=== PATIENT | female | born 1950 | race Caucasian/White ===

== ENCOUNTER 2025-05-20 10:44 | Inpatient (IN) | payer BC, MEDICAID ==
[~2025-05-20] VITALS: Ht 149.9 cm; Wt 53.6 kg
[2025-05-20] MEDS: HYDROmorphone inj. 0.5 MG/0.5 ML DISP.SYRIN IV ONE (11:06)
--- NOTE | 2025-05-20 11:06 | Physician Documentation ---
History of Present Illness Chief Complaint: Abdominal Pain Stated Complaint: SEPSIS Time Seen by MD: 10:46 HPI 74-year-old female, presents as a transfer from an outside hospital, with abdominal pain, colitis, hypotensive shock. The patient tells me that she has been having abdominal pain. She does report ongoing lower abdominal pain and feels like she needs to have a bowel movement. Pain is severe. The patient was seen at an outside hospital. She was hypotensive, given aggressive IV fluid hydration and temporarily placed on norepinephrine. CT scan reportedly shows colitis. Medication Reconciliation Allergies: Coded Allergies: ketamine (Verified Allergy, Severe, 05/20/25) hallucination, confusion Review of Systems Constitutional: Denies: fever Gastrointestinal: Reports: abdominal pain, nausea Physical Exam Vital Signs: Heart Rate: 86, Respiratory Rate: 20, BP: 126/83, Pulse Oximetry: 91, Weight: 53.640 Oxygen Flow Rate: 2.0 Physical Exam General: This is a pleasant and nontoxic appearing older female, brought in by EMS HEENT: Atraumatic, oropharynx appears dry Heart: Regular rate and rhythm, normal-appearing peripheral perfusion Lungs: normal work of breathing, normal oxygen saturation on room air Abdomen: Soft, no significant distention. The patient is quite tender on palpation especially in the lower abdomen, with voluntary guarding Neuro: Alert and oriented Psychiatric: Calm and cooperative with exam Progress Results/Orders Results/Orders Orders - SAMMI MCGUIRE MD Cbc/Diff (05/20/25 10:57) LA (05/20/25 10:57) CMP (05/20/25 10:57) Completed Orders - SAMMI MCGUIRE MD Hydromorphone 0.5 Mg/0.5 Ml/Pf (Dilaudid (05/20/25 11:00) Vital Signs 05/20/25 10:48 Pulse 86 Resp 20 B/P (MAP) 126/83 Pulse Ox 91 O2 Flow Rate 2.0 Consults/PCP Consults/PCP : Additional Comment Consult: I spoke to the internal medicine service, for admission in the hospital Medical Decision Making Additional information obtaine: old records Findings Reviewed records from outside hospital. CT scan shows colitis of the sigmoid colon with moderate ascites which is new Differential Dx:Considerations: Appendicitis, Bowel obstruction, Gastroe nteritis, Ischemic bowel Additional Comments The patient presents as a transfer from an outside hospital, with colitis and hypotension which has improved. She is no longer on pressors. She does still have abdominal pain and was given further pain medications. Repeat labs show a slightly elevated lactate and mild leukocytosis. She already had abdominal imaging and antibiotics. She will be admitted to the medicine service for further workup and treatment. Departure Impression: Primary Impression: Colitis Additional Impression: Septic shock Referrals: NO PRIMARY CARE PROVIDER (PCP) Signature Scribe Signature: na Attestation: SAMMI Quarles MD May 20, 2025 11:06
[2025-05-20 11:41] LABS: MEAN PLATELET VOLUME 8.9 FL (7.4-10.4); RED CELL DISTRIBUTION WIDTH 16.2 % (11.5-14.5)
[2025-05-20 11:59] LABS: CREATININE 1.39 MG/DL (0.40-0.90); TOTAL CARBON DIOXIDE 24.0 MMOL/L (24-32); eCRCL 24 ML/MIN; eGFR 37 ML/MIN
[2025-05-20] MEDS ORDERED: magnesium Cl slow-release 64mg tablet PO PRN (12:05)
[2025-05-20] MEDS ORDERED: HYDROcodone/acetaminophen 5mg/325mg tablet PO PRN (12:05)
[2025-05-20] MEDS ORDERED: magnesium hydroxide 30ml (MOM) UD suspension PO PRN (12:05)
[2025-05-20] MEDS ORDERED: potassium Cl 40MEQ/1/2NS 520ml 520 ML IV PRN (12:05)
[2025-05-20] MEDS ORDERED: potassium Cl 20 mEq SR tablet PO PRN (12:05)
[2025-05-20] MEDS ORDERED: magnesium sulf-water 4G/100mL 100 ML IV PRN (12:05)
[2025-05-20] MEDS ORDERED: magnesium sulf-water 2g/50mL 50 ML IV PRN (12:05)
[2025-05-20] MEDS ORDERED: ondansetron/PF 4mg/2ml inj IV PRN (12:05)
[2025-05-20] MEDS: normal saline 1000ml 1,000 ML IV SCH ×2 (12:37→15:46)
[2025-05-20] MEDS: metroNIDAZOLE-Flagyl 500mg/NS 100 ML IV SCH (12:41)
[2025-05-20] MEDS: ciprofloxacin lact 400MG/200ML 200 ML IV SCH (14:04)
[2025-05-20] MEDS: normal saline 1000ml 1,000 ML IV ONE (17:54)
[2025-05-20] MEDS ORDERED: MIRT-87 (19:44)
[2025-05-20] MEDS ORDERED: TRAZ-256 (19:44)
[2025-05-20] MEDS ORDERED: UBRO50TA (19:44)
[2025-05-20] MEDS ORDERED: ATOR40TA72 PO (19:44)
[2025-05-20] MEDS ORDERED: METO-395 PO (19:44)
[2025-05-20] MEDS ORDERED: HYDR-3972 (19:44)
[2025-05-20] MEDS ORDERED: ASPI-1265 PO (19:44)
[2025-05-20] MEDS ORDERED: CLON-368 (19:44)
[2025-05-20] MEDS ORDERED: AMLO5TAB16 PO (19:44)
[2025-05-20] MEDS ORDERED: DULO30CA52 PO (19:44)
[2025-05-20] MEDS ORDERED: IVAB5TAB3 (19:44)
[2025-05-20] MEDS ORDERED: AMIT50TA15 PO (19:44)
[2025-05-20] MEDS ORDERED: PANT40TA54 PO (19:44)
[2025-05-20] MEDS ORDERED: LEVO100T9 PO (19:44)
--- NOTE | 2025-05-20 19:55 | HISTORY AND PHYSICAL ---
History & Physical Providers to ~ History of Present Illness Reason for Admit\Complaint: Lower belly pain, hypotension History of Present Illness Patient is 74-year-old female transferred from [facility] for left lower abdominal pain, acute colitis hypovolemic shock. Patient went to [facility] because she noticed pain over abdomen which got more worse. pain over left lower quadrant nonradiating. Pain over lower abdomen associated with vomiting and as per patient she had 10 episodes of vomiting she has was not able to check her fever. According to her her belly feels like bloating in around 2:30 a.m. today it got more worse. She passed stools today which was loose no blood noticed in the stools. Patient denies any other symptoms. She is not very good historian mildly anxious As per [facility] patient was on IV fluids and Levophed . Levophed was discontinued 2 hours before transferring the patient to [facility] hospital. She required Dilaudid in received Zosyn in [facility] periods CT scan abdomen showed signs of sigmoid colitis. There is moderate ascites which is new. Persistent intrahepatic and extrahepatic biliary distension unchanged. Dilated pancreatic duct and changed WBC 11.85 CMP showing GFR 38 serum creatinine 1.6. Procalcitonin 0.16 positive urine nitrate in UA. Few bacteria. X-ray chest showed mild pulmonary edema superimposed infection or inflammation is possible. Patient follows with Marcella Lo in [facility]. She has [facility] worker to help her for her appointments and groceries. Follows with client success specialist Erendira heller. Denies use of any alcohol or drugs. Last smoking two weeks back but she has history of smoking in past. Allergies: Coded Allergies: ketamine (Verified Allergy, Severe, 05/20/25) hallucination, confusion Home Medications Home Medications Active Reported Ivabradine HCl 5 Mg Tablet Ubrelvy (Ubrogepant) 50 Mg Tablet Mirtazapine 15 Mg Tablet Metoprolol Succinate 25 Mg Tab.sr.24h 1 Tab PO DAILY Atorvastatin Calcium 40 Mg Tablet 1 Tab PO HS Trazodone HCl 100 Mg Tablet Hydrocodon-Acetaminophn 10-325 tablet (Acetaminophen/Hydrocodone Bitart) 10mg- 325mg Tablet Elavil* (Amitriptyline HCl) 50 Mg Tablet 1 Tab PO HS Clonazepam 0.5 Mg Tablet Levothyroxine Sodium 100 Mcg Tablet 1 Tab PO DAILY Aspirin 81 Mg Tab.chew 1 Tab PO DAILY Pantoprazole Sodium 40 Mg Tablet. 1 Tab PO DAILY Amlodipine Besylate 5 Mg Tablet 1 Tab PO DAILY Duloxetine HCl 30 Mg Capsule. 1 Cap PO DAILY Past Medical History Past Medical History Falling since September 21, 2024, History of PR, Coronary artery disease, hypertension, hypothyroidism, History of bowel resection, small-bowel obstruction in past Past Social History Social History Comment Patient lives by herself. Patient follows with Marcella Lo in [facility]. She has [facility] worker to help her for her appointments and groceries. Follows with client success specialist Erendira heller. Denies use of any alcohol or drugs. Last smoking two weeks back but she has history of smoking in past. 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 Exam Vitals: Vital Signs Date Time Temp Pulse Resp B/P (MAP) Pulse Ox O2 Delivery O2 Flow Rate FiO2 05/20/25 19:46 84 16 111/74 (86) 94 05/20/25 15:43 98.5 2.0 General: General-patient not in any acute distress, awake ,chronically ill-appearing HEENT-atraumatic normocephalic, neck supple without elevated JVD, no thyromegaly or carotid bruit. No lymphadenopathy bilaterally. Eyes-no icterus or pallor seen in eyes Chest-decreased breath sounds to auscultation bilaterally, breathing nonlabored no tachypnea, no wheezing, no crepitation, no crackles. Heart-S1-S2 normal, regular heart rate no murmur Abdomen bowel sounds positive on auscultation, soft nondistended nontender no guarding, no rigidity genital - brown color mildly loose stools noticed Skin no active skin rash Neurology-grossly intact, nonfocal, awake Extremity- no pedal edema able to move all 4 extremities Psychiatry - patient is not confused or agitated cooperated during physical examination Diagnostic Data Last Recorded Lab Results: 05/20/25 1123 05/20/25 1123 Advance Care Planning Advanced Care plannin - 30 Minutes Additional Plan Patient is 74-year-old female transferred from [facility] for left lower abdominal pain, acute colitis hypovolemic shock. Patient went to [facility] because she noticed pain over lower abdomen which got more worse. As per [facility] patient was on IV fluids and Levophed . Levophed was discontinued 2 hours before transferring the patient to [facility] hospital. She required Dilaudid in received Zosyn in [facility] periods CT scan abdomen showed signs of sigmoid colitis. There is moderate ascites which is new. Persistent intrahepatic and extrahepatic biliary distension unchanged. Dilated pancreatic duct and changed WBC 11.85 CMP showing GFR 38 serum creatinine 1.6. Procalcitonin 0.16 positive urine nitrate in UA. Few bacteria. X-ray chest showed mild pulmonary edema superimposed infection or inflammation is possible. # patient is started on Cipro and Flagyl for acute colitis, IV fluids we will repeat lactic acid. # CAD-ordered echocardiogram we will follow the results. # acute renal failure/CKD- on IV fluid we will monitor renal function. # hypotension-improved on fluids. # We will continue to monitor patient's labs and vitals closely . Needs physical therapy evaluation before discharge . Code status discussed with the patient patient wishes full code Time spent in discussing code status 16 minutes. We will do home medication reconciliation once updated in electronic by nursing staff or pharmacist. Further management depending on response to treatment and we will continue to follow patient in a.m. from hospitalist team. Date of Service: May 20, 2025 Billing Provider: JUAN MIMS MD Common Visit Codes: [id number] INP/OBS CARE (HIGH) Secondary Visit Codes: [id number] CARE PLAN 30 MINUTES JUAN MIMS MD May 20, 2025 19:55
[2025-05-20 21:00] VITALS: BP 157/86; PULSE 94; RESP 18; TEMP 98.6; O2SAT 90
[2025-05-20] MEDS: heparin, porcine 5000 units/ml vial SQ SCH (21:36)
[2025-05-20] MEDS: HYDROcodone/acetaminophen 10/325mg tab PO PRN (21:37)
[2025-05-20] MEDS: ciprofloxacin lact 400MG/200ML 200 ML IV ONE (23:38)
[2025-05-21 05:00] VITALS: BP 128/76; PULSE 84; RESP 17; TEMP 97.4; O2SAT 92
[2025-05-21 06:54] LABS: MEAN PLATELET VOLUME 9.5 FL (7.4-10.4); RED CELL DISTRIBUTION WIDTH 16.3 % (11.5-14.5)
[2025-05-21 07:48] LABS: CREATININE 0.95 MG/DL (0.40-0.90); TOTAL CARBON DIOXIDE 20.4 MMOL/L (24-32); eCRCL 35 ML/MIN; eGFR 57 ML/MIN
[2025-05-21 10:00] VITALS: BP 105/64; PULSE 83; RESP 16; TEMP 98.9; O2SAT 93
[2025-05-21] MEDS: ENSURE HIGH PROTEIN PO SCH (13:00)
--- NOTE | 2025-05-21 17:49 | PROGRESS NOTE- Residence ---
Progress Note - Resident Providers to CC Resident Creating Document: RYAN VARGASANUPAM Harrington, RES ~ Antibiotic Timeout Antibiotic Ordered?: Yes Subjective The patient has been evaluated at the bedside. The patient reports improvement of diarrhea. Last bowel movement at 6:00 a.m. Objective Vital Signs Date Time Temp Pulse Resp B/P (MAP) Pulse Ox O2 Delivery O2 Flow Rate FiO2 05/21/25 10:00 98.9 83 16 105/64 (78) 93 Room Air 05/20/25 15:43 2.0 Physical exam: General: Awake, alert, oriented. No acute distress. Well-developed, hydrated and well-built nourished. No anemia, Jaundice or clubbing. HEENT: Conjunctive are pink, sclerae clear, no icterus, pupil is equal in both sides, reactive to light, no ear discharge, no pharyngeal erythema or an edema. Neck: Supple, no adenopathy, thyromegaly. Trachea is midline. No JVD. Chest: Respiratory: Vesicular breath sounds. No ronchi, crepitus or wheezing. Resonance is normal upon percussion of all lung lee. Cardiovascular: S1-S2 regular sinus rhythm and, regular rate, no gallops, no rubs, no murmurs Abdomen: No visible distention, Bowel sounds present on auscultation, on palpation: soft, tender to palpation in the lower abdomen, no guarding, no rigidity. Extremities: No obvious deformities, no pitting edema bilaterally, capillary refill intact, peripheral pulsations are intact on both sides Neurologic: Mental status: alert and conscious, oriented to place, person and time, preserved memory, normal speech. Cranial nerves I-XII: Normal. Motor system: Preserved power, coordination, no evidenced involuntary movements, strength 5/5 in four extremities. Skin: Warm and dry. Presence of scar in the midline of the abdomen Result Diagram: 05/21/2554005/21/25540 Assessment Assessment 74-year-old female patient came to the hospital transferred from [facility] due to abdominal pain and diarrhea. Plan Plan Acute diarrhea: Septic shock: Infectious Colitis: A: The patient presented with acute abdominal pain and diarrhea. CT scan of the abdomen showed signs of sigmoid colitis. There is moderate ascites which is new. Persistent intrahepatic and extrahepatic biliary distension unchanged. Dilated pancreatic duct and changed. The patient was transferred from [facility], initially was treated with Levophed-discontinued at the other facility V4 transferred. WBC trended down compared with admission. Last colonoscopy that the patient had was in 2022 at [facility] were polyps were evidenced, benign. The patient was recommended to follow-up colonoscopy in seven years. Procalcitonin 5.06. Plan: Continue ciprofloxacin IV b.i.d. Continue metronidazole IV b.i.d. Culturelle 56052 mmu b.i.d. Acute kidney injury likely secondary to vasomotor nephropathy: Creatinine during admission 1.39, current creatinine level 0.95. Plan: Continue NS at 100 mL/hour. Hypertension: The patient initially was with hypotension, currently resolved. Amlodipine 5 mg daily. Metoprolol succinate 25 mg daily. Hypothyroidism: Levothyroxine 100 mcg daily. H/O Dyslipidemia: Atorvastatin 40 mg daily. Depression: Mirtazapine 50 mg daily. Duloxetine 30 mg daily. Amitriptyline 50 mg daily. H/O CAD: Pending echocardiogram. Aspirin 81 mg daily. Code status: Full code DVT prophylaxis: Heparin Analgesia/sedation: [place] Line/tube: PIV GI prophylaxis: Protonix Nutrition: Regular diet PT: Yes Prognosis: Guarded Disposition: Continue medical management. Anupam Sun Internal Medicine Resident [facility] Patient is seen and examined with resident at bedside agree with the above questionable DC home in a.m. Date of Service: May 21, 2025 Billing Provider: BELLO FELIPE MD Common Visit Codes: [id number] INP/OBS CARE(HIGH) ANUPAM FAIRBANKS, RES May 21, 2025 17:49 BELLO FELIPE MD May 22, 2025 09:54
[2025-05-21 18:00] VITALS: BP 127/84; PULSE 103; RESP 19; TEMP 98.9; O2SAT 90
[2025-05-21] MEDS: lactobacillus rhamnosus 10,000 MMU CELLS/CAPSULE PO SCH (19:46)
[2025-05-21 22:00] VITALS: BP 158/95; PULSE 100; RESP 16; TEMP 98.5; O2SAT 97
[2025-05-22 06:00] VITALS: BP 119/78; PULSE 87; RESP 18; TEMP 98.8; O2SAT 95
[2025-05-22 06:44] LABS: MEAN PLATELET VOLUME 9.7 FL (7.4-10.4); RED CELL DISTRIBUTION WIDTH 16.1 % (11.5-14.5)
[2025-05-22 07:11] LABS: CREATININE 0.73 MG/DL (0.40-0.90); TOTAL CARBON DIOXIDE 22.1 MMOL/L (24-32); eCRCL 45 ML/MIN; eGFR 78 ML/MIN
[2025-05-22 08:18] LABS: % IRON SATURATION 3 % (11-46)
[2025-05-22] MEDS: duloxetine 30mg CAPSULE.DR PO SCH (08:54)
[2025-05-22] MEDS: levoTHYROXINE 100mcg tablet PO SCH (08:54)
[2025-05-22] MEDS: pantoprazole 40mg Tablet.DR PO SCH (08:55)
[2025-05-22] MEDS: metoprolol succinate 25mg (24-HOUR) SR. Tablet PO SCH (08:55)
[2025-05-22 10:00] VITALS: BP 131/85; PULSE 90; RESP 18; TEMP 98.6; O2SAT 91
[2025-05-22] MEDS: iron sucrose complex injection 300 MG in normal saline 250ml IV soln 250 ML IV SCH (10:00)
--- NOTE | 2025-05-22 13:33 | CARDIOLOGY REPORT ---
APPROVED REPORT EXAM: Comprehensive 2D, Doppler, and color-flow Echocardiogram. Patient Location: 4023B Blood Pressure: 128/76 mmHg Heart Rate: 95 bpm Indications Coronary Artery Disease HX of Myocardial Infarction (10/22/24 - per patient) HAND TRUCKER: Awilda Schultz MD NO Previous ECHO 2D Dimensions LA Diam 2.3 cm IVSd 1.1 (0.7-1.1cm) LVDd 3.1 cm PWd 1.1 (0.7-1.1cm) IVSs 1.4 (0.8-1.2cm) LVDs 1.8 (2.5-4.0cm) PWs 1.0 (0.8-1.2cm) LVOT Diameter 2.00 (1.8-2.4cm) LVEF(%) 74.6 (>50%) Ao Asc Diam. 2.97 cm IVC 10.37 mm FS (%) 42.1 % SV 27.4 ml CO 2.5 L/min M-Mode Dimensions Left Atrium(MM) 2.64 (2.5-4.0cm) Aortic Root 2.77 (2.2-3.7cm) Aortic Cusp Exc 1.33 (1.5-2.0cm) MV EPSS 0.3 (<0.5cm) Aortic Valve AoV Peak Mark. 168.3 cm/s AoV VTI 27.2 cm AO Peak GR. 11.3 mmHg AO Mean GR. 7 mmHg LVOT VTI 18.91 cm LVOT Peak Mark. 117.1 cm/s TANIA(VTI)/BSA 2.19 cm2/m2 TANIA (VTI) 2.19 cm2 AV DI 0.70 % Mitral Valve MV E Velocity 88.0 cm/s MV Peak Gr. 6 mmHg MV DECEL TIME 216 ms MV A Velocity 100.6 cm/s MV PHT 56 ms E/A Ratio 0.9 MVA (PHT) 3.93 cm2 MV VMax 119.8 cm/s TDI Lateral E' P. V 10.18 cm/s Medial E' P. V 10.32 cm/s E/Lateral E' 8.6 E/Medial E' 8.5 Tricuspid Valve TR P. Velocity 146 cm/s RAP ESTIMATE 10 mmHg TR Peak Gr. 9 mmHg RVSP 19 mmHg LEFT VENTRICLE Normal LV size and wall thickness. Overall systolic function is hyperdynamic. Overall LVEF is 70-75%. RIGHT VENTRICLE RV is normal size and function. ATRIA The left atrium size is normal. AORTIC VALVE Trileaflet AV appears mildly sclerotic without stenosis. No insufficiency. MITRAL VALVE Mitral valve leaflets are mildly thickened with mild annular calcification. No stenosis. Trace regurgitation. TRICUSPID VALVE Tricuspid valve is grossly normal in structure with trace regurgitation. PULMONIC VALVE Pulmonic valve is grossly normal in structure. GREAT VESSELS The aortic root is normal in size. The ascending aorta is normal in size. The IVC is normal in size and collapses >50% with inspiration. PERICARDIUM Normal pericardium. No effusion. Other Information Study Quality: Technically Difficult due to breat implants. Conclusion Overall LVEF is 70-75%. Normal LV size and wall thickness. Overall systolic function is hyperdynamic. RV is normal size and function. Mitral valve leaflets are mildly thickened with mild annular calcification. No stenosis. Trace regurgitation. Tricuspid valve is grossly normal in structure with trace regurgitation. Normal pericardium. No effusion. Pulmonic valve is grossly normal in structure.
[2025-05-22 15:26] LABS: OCCULT BLOOD STOOL POSITIVE (Neg)
[2025-05-22] MEDS: potassium Cl 20 mEq SR tablet PO PRN (16:58)
--- NOTE | 2025-05-22 17:38 | PROGRESS NOTE- Residence ---
Progress Note - Resident Providers to CC Resident Creating Document: REGGIE BELL RES ~ Antibiotic Timeout Antibiotic Ordered?: Yes Subjective The patient has been evaluated at the bedside. The patient reports she is having abdominal pain along with diarrhea. Objective Vital Signs Date Time Temp Pulse Resp B/P (MAP) Pulse Ox O2 Delivery O2 Flow Rate FiO2 05/22/25 13:41 20 05/22/25 10:00 98.6 90 131/85 (100) 91 Room Air 05/20/25 15:43 2.0 Result Diagram: 05/22/2541 05/22/25540 General: Awake, alert, oriented. Well-developed, hydrated and well-built nourished. No anemia, Jaundice or clubbing. HEENT: Conjunctive are pink, sclerae clear, no icterus, pupil is equal in both sides, reactive to light, no ear discharge, no pharyngeal erythema or an edema. Neck: Supple, no adenopathy, thyromegaly. Trachea is midline. No JVD. Chest: Respiratory: Vesicular breath sounds. No ronchi, crepitus or wheezing. Resonance is normal upon percussion of all lung lee. Cardiovascular: S1-S2 regular sinus rhythm and, regular rate, no gallops, no rubs, no murmurs Abdomen: No visible distention, Bowel sounds present on auscultation, on palpation: soft, tender to palpation in the lower abdomen, no guarding, no rigidity. Extremities: No obvious deformities, no pitting edema bilaterally, capillary refill intact, peripheral pulsations are intact on both sides Neurologic: Mental status: alert and conscious, oriented to place, person and time, preserved memory, normal speech. Cranial nerves I-XII: Normal. Motor system: Preserved power, coordination, no evidenced involuntary movements, strength 5/5 in four extremities. Skin: Warm and dry. Presence of scar in the midline of the abdomen Assessment Assessment 74-year-old female patient came to the hospital transferred from [facility] due to abdominal pain and diarrhea. Plan Plan Acute diarrhea: Septic shock: Infectious Colitis: A: The patient presented with acute abdominal pain and diarrhea. CT scan of the abdomen showed signs of sigmoid colitis. There is moderate ascites which is new. Persistent intrahepatic and extrahepatic biliary distension unchanged. Dilated pancreatic duct and changed. The patient was transferred from [facility], initially was treated with Levophed-discontinued at the other facility V4 transferred. WBC trended down compared with admission. Last colonoscopy that the patient had was in 2022 at [facility] were polyps were evidenced, benign. The patient was recommended to follow-up colonoscopy in seven years. Procalcitonin 5.06. Plan: Continue ciprofloxacin IV b.i.d. Continue metronidazole IV b.i.d. Culturelle 90784 mmu b.i.d. 05/22/25- Continue giving antibiotics We will continue to monitor her. Acute kidney injury likely secondary to vasomotor nephropathy: Creatinine during admission 1.39, current creatinine level 0.95. Plan: Continue NS at 100 mL/hour. 05/22/25- Creatinine back to normal. Continue to monitor her. Hypertension: The patient initially was with hypotension, currently resolved. Amlodipine 5 mg daily. Metoprolol succinate 25 mg daily. 05/22/25- Patient recording low blood pressure 66/46. Given 1 L bolus fluids. Held amlodipine and metoprolol in view of soft blood pressures. Hypothyroidism: Levothyroxine 100 mcg daily. H/O Dyslipidemia: Atorvastatin 40 mg daily. Depression: Mirtazapine 50 mg daily. Duloxetine 30 mg daily. Amitriptyline 50 mg daily. H/O CAD: Pending echocardiogram. Aspirin 81 mg daily. Code status: Full code DVT prophylaxis: Heparin Analgesia/sedation: [place] Line/tube: PIV GI prophylaxis: Protonix Nutrition: Regular diet PT: Yes Prognosis: Guarded Disposition: Continue medical management. Reggie Bell PGY-1 Date of Service: May 22, 2025 Billing Provider: BELLO FELIPE MD Common Visit Codes: [id number] INP/OBS CARE(HIGH) REGGIE BELL, RES May 22, 2025 17:38 BELLO FELIPE MD May 25, 2025 15:02
[2025-05-22 18:00] VITALS: BP 74/50; PULSE 93; RESP 20; TEMP 98.1; O2SAT 92
[2025-05-22] MEDS: normal saline 1000ML IV soln IVB ONE (18:09)
[2025-05-22 18:56] LABS: ABG BASE EXCESS -8.0 mmol/L (-2.0-3.0); ABG HCO3 16.8 mmol/L (21.0-28.0); ABG OXYGEN SATURATION 86.6 % (94.0-98.0); ABG PCO2 (T) 30.7 mmHg (32.0-45.0); ABG PH (T) 7.351 (7.350-7.450); ABG PO2 (T) 51.5 mmHg (83.0-108.0); ALLEN'S TEST Modified; FCOHb 0.9 % (0.5-1.5); FHHb 13.2 % (0.0-5.0); FIO2 100.0 mmHg/%; FLOW 15 L/min; FMetHb 0.3 % (0.0-1.5); FO2Hb 85.6 % (94.0-98.0); MODE nrb; PATIENT TEMPERATURE 36.2; TOTAL HEMOGLOBIN 10.7 G/dl (12.0-16.0)
--- NOTE | 2025-05-22 19:11 | RADIOLOGY REPORT ---
CHEST RADIOGRAPH Indication: sob Technique: Single frontal view of the chest was obtained Comparison: None FINDINGS: Lines and Tubes: None Lungs: No focal consolidation. Diffuse interstitial prominence. Pleura: No effusion. No pneumothorax. Cardiomediastinal contours: Borderline cardiomegaly with mild Atherosclerotic calcification and uncoiling of the aorta. Bones: No acute osseous abnormality. IMPRESSION: Diffuse interstitial prominence which may be from pulmonary edema/ atypical pneumonia/fibrotic changes.
[2025-05-22 19:15] VITALS: O2SAT 94
[2025-05-22 19:50] LABS: MEAN PLATELET VOLUME 9.2 FL (7.4-10.4); RED CELL DISTRIBUTION WIDTH 16.3 % (11.5-14.5)
[2025-05-22 20:00] VITALS: RESP 20; O2SAT 92
[2025-05-22 20:02] LABS: CREATININE 1.06 MG/DL (0.40-0.90); TOTAL CARBON DIOXIDE 22.7 MMOL/L (24-32); eCRCL 31 ML/MIN; eGFR 51 ML/MIN
--- NOTE | 2025-05-22 20:10 | RADIOLOGY REPORT ---
ABDOMEN, (KUB) ONE VIEW REASON FOR EXAM: peritonitis COMPARISON: None TECHNIQUE: A single view of the abdomen is obtained. FINDINGS: The bowel gas pattern is nonobstructive. There is moderate gas in the large bowel. There is no supine evidence of pneumoperitoneum. There are degenerative changes in the visualized spine. IMPRESSION: Nonobstructive bowel gas pattern. Moderate colonic gas.
[2025-05-22 22:00] VITALS: BP 131/90; PULSE 92; RESP 16; TEMP 98.3; O2SAT 93
[2025-05-23] VITALS (10 sets, daily range): BP systolic 90–135; BP diastolic 57–91; PULSE 91–106; RESP 14–19; TEMP 96.8–98.7; O2SAT 92–98
--- NOTE | 2025-05-23 00:18 | RADIOLOGY REPORT ---
COMPUTERIZED TOMOGRAPHY CHEST/ABDOMEN/PELVIS WITHOUT INTRAVENOUS CONTRAST CLINICAL HISTORY: sob, ABD PAIN, ABD IS TENSE AND RIGID COMPARISON: DI ABDOMEN,SINGLE VIEW(KUB) on DOS: 05/22/25, DI CHEST,SINGLE VIEW on DOS: 05/22/25 TECHNIQUE: Axial CT images of the chest, abdomen and pelvis were obtained. 2-D coronal and sagittal reformatted images were provided. Radiation optimization: All CT scans at this facility use at least one of these dose optimization techniques: Automated exposure control mA and/or kV adjustment per patient size (includes targeted exams where dose is matched to clinical indication) or iterative reconstruction. RADIATION DOSE: CTDI: 9 mGy DLP: 562 mGy-cm FINDINGS: CHEST: There is moderate centrilobular emphysema. There is interlobular septal thickening. There is mild pulmonary edema. There is partial consolidation of dependent portions of bilateral lower lobes. There are small bilateral pleural effusions. There is no pneumothorax. The heart is not enlarged. There is no pericardial effusion. There are bilateral breast prostheses. There is likely rupture of the left breast prosthesis. There is no thoracic aortic aneurysm. There are numerous subcentimeter lymph nodes in the mediastinum. ABDOMEN/PELVIS: The spleen is not enlarged. Motion artifact degrades evaluation of the abdomen and pelvis. Evaluation of the abdominal organs is suboptimal in the absence of intravenous contrast. The liver is normal in size and contour. There is intrahepatic and extrahepatic biliary dilation. The gallbladder is signi ficantly distended. No calcified gallstone is identified. The common bile duct is dilated at approximately 16 mm. The pancreatic duct is dilated at approximately 7 mm. The adrenal glands are grossly unremarkable. The kidneys are similar in size. There is no hydronephrosis of either kidney. There is no abdominal aortic aneurysm. There is dilute contrast and air within the urinary bladder. The uterus is within normal limits for age. The ovaries are not seen. There is nonspecific edema of the perirectal fat. There is diffuse mural thickening of the transverse and descending colon most consistent with colitis. There is mild inflammatory stranding about the descending colon. The appendix is not seen. There is no pathologic distention of the small bowel. No free fluid is identified in the abdomen or pelvis on the current study. No pathologic lymphadenopathy is identified in the abdomen or pelvis by size criteria. There is no pneumoperitoneum. No acute osseous abnormality is identified. IMPRESSION: Thickened transverse and descending colon consistent with colitis. There is also edema about the rectum that may indicate proctitis. No pneumoperitoneum. No intra-abdominal abscess identified. Intrahepatic and extrahepatic biliary dilation. CBD dilated at approximately 16 mm. The pancreatic duct is also dilated at approximately 7 mm. Consider evaluation with MRCP. Small bilateral pleural effusions. Partial consolidation of the dependent portions of bilateral lower lobes of the lungs. Moderate centrilobular emphysema with scattered fibrotic changes. Interlobular septal thickening. Mild pulmonary edema. Likely rupture of the left breast prosthesis.
[2025-05-23] MEDS: sodium bicarbonate (8.4%) inj. 50 MEQ in dextrose 5%-water 1,000 ML IV ONE (03:10)
[2025-05-23] MEDS: sodium bicarbonate (8.4%) inj. 1 MEQ/ML ML ONE (03:24)
[2025-05-23 06:34] LABS: MEAN PLATELET VOLUME 9.6 FL (7.4-10.4); RED CELL DISTRIBUTION WIDTH 16.6 % (11.5-14.5)
[2025-05-23 06:58] LABS: CREATININE 0.90 MG/DL (0.40-0.90); TOTAL CARBON DIOXIDE 27.4 MMOL/L (24-32); eCRCL 37 ML/MIN; eGFR 61 ML/MIN
[2025-05-23] MEDS: Ensure Enlive - 237ML PO SCH (07:30)
--- NOTE | 2025-05-23 09:10 | RADIOLOGY REPORT ---
CLINICAL INFORMATION: Abdominal pain. Dilated common bile duct on CT. Elevated ALP. TECHNIQUE: Grayscale sonographic imaging of the right upper quadrant of the abdomen was performed, assisted by color Doppler techniques. COMPARISON: CT CT CHEST ABDOMEN PELVIS on DOS: 05/22/25, DI ABDOMEN,SINGLE VIEW(KUB) on DOS: 05/22/25, ABD PEL WITH(ADULT) on DOS: 05/20/25 FINDINGS: The gallbladder wall measures 2.1 mm in thickness, within normal limits. No stones are seen.Negative reported sonographic Griffith's sign. The common bile duct measures 21 mm in diameter, abnormally dilated. There is intrahepatic biliary ductal dilatation. Coarsened liver echotexture and nodular contour of the liver, may be seen with cirrhosis in the appropriate clinical setting. Liver measures up to 12.5 cm in craniocaudal dimension, within normal limits. The pancreas is mostly obscured by bowel gas. Pancreatic duct appears dilated, not measured during the examination, although appears to measure up to 8.5 mm in diameter The right kidney measures 9.0 cm. There is no hydronephrosis. Right renal cortical echogenicity and cortical thickness are within normal limits. There is a small volume of ascites. IMPRESSION: 1. Intrahepatic and extrahepatic biliary ductal dilatation and dilated pancreatic duct. Obstruction due to mass at the pancreatic head can not be excluded. Correlate with clinical findings. Pancreatic protocol MRI with MRCP could be considered to further evaluate. 2. No gallstones visualized in the gallbladder. 3. Cirrhotic liver morphology with mild ascites. Correlate with clinical findings. 4. Additional findings as described above.
--- NOTE | 2025-05-23 11:41 | ELECTROCARDIOGRAPH REPORT ---
[facility] Test Date: 2025-05-22 Test Time: 18:53:17 Pat Name: SKYE PRASAD Department: ORTHO Room: ORTHO 40[address] Gender: F [employer] Supervisor: : 1950 Requested By: REGGIE ENRIQUEZ Order Number: [id number] Reading MD: Dr. LIZZ Carrasco Measurements Intervals [place] Rate: 87 P: 34 MI: 173 QRS: 17 QRSD: 90 T: 67 QT: 395 QTc: 476 Interpretive Statements Sinus rhythm Ventricular premature complex Aberrant conduction of SV complex(es) Anteroseptal infarct, age indeterminate Electronically Signed On 05-23-2025 13:05:[address] LIZZ Carrasco Please click the below link to view image of tracing.
[2025-05-23 13:42] LABS: PRO BRAIN NATRIURETIC PEPTIDE 5809 PG/ML (0-450)
--- NOTE | 2025-05-23 14:31 | PROGRESS NOTE- Residence ---
Progress Note - Resident Providers to CC Resident Creating Document: RYAN VARGASANUPAM Harrington, RES ~ Antibiotic Timeout Antibiotic Ordered?: Yes Subjective The patient has been evaluated at the bedside. The patient reports mild pain 2/10 at the level of the left abdomen improved compared to admission. Yesterday rapid response was called due to low blood pressures, today blood pressure within reference range. Objective Vital Signs Date Time Temp Pulse Resp B/P (MAP) Pulse Ox O2 Delivery O2 Flow Rate FiO2 05/23/25 10:00 98.3 91 14 107/71 (83) 97 Venturi Mask 11.0 50 Physical exam: General: Awake, alert, oriented. No acute distress. Well-developed, hydrated and well-built nourished. No anemia, Jaundice or clubbing. HEENT: Conjunctive are pink, sclerae clear, no icterus, pupil is equal in both sides, reactive to light, no ear discharge, no pharyngeal erythema or an edema. Neck: Supple, no adenopathy, thyromegaly. Trachea is midline. No JVD. Chest: Respiratory: Vesicular breath sounds. No ronchi, crepitus or wheezing. Resonance is normal upon percussion of all lung lee. Cardiovascular: S1-S2 regular sinus rhythm and, regular rate, no gallops, no rubs, no murmurs Abdomen: No visible distention, Bowel sounds present on auscultation, on palpation: soft, tender to palpation in the left lower abdomen, no guarding, no rigidity. Extremities: No obvious deformities, no pitting edema bilaterally, capillary refill intact, peripheral pulsations are intact on both sides Neurologic: Mental status: alert and conscious, oriented to place, person and time, preserved memory, normal speech. Cranial nerves I-XII: Normal. Motor system: Preserved power, coordination, no evidenced involuntary movements, strength 5/5 in four extremities. Skin: Warm and dry. Presence of scar in the midline of the abdomen Result Diagram: 05/23/25 0546 05/23/25 0546 Coagulation Studies Laboratory Tests Test 05/22/25 19:32 D-Dimer 8.04 MG/L FEU (0-0.50) H D-Dimer Comment Assessment Assessment 74-year-old female patient came to the hospital transferred from [facility] due to abdominal pain and diarrhea. Plan Plan Acute diarrhea: Septic shock-resolved: Infectious Colitis: A: The patient presented with acute abdominal pain and diarrhea. CT scan of the abdomen showed signs of sigmoid colitis. There is moderate ascites which is new. Persistent intrahepatic and extrahepatic biliary distension unchanged. Dilated pancreatic duct and changed. The patient was transferred from [facility], initially was treated with Levophed-discontinued at the other facility V4 transferred. WBC trended down compared with admission. Last colonoscopy that the patient had was in 2022 at [facility] were polyps were evidenced, benign. The patient was recommended to follow-up colonoscopy in seven years. Procalcitonin 5.06. 05/22/25-Continue giving antibiotics We will continue to monitor her. 05/23/2025: Procalcitonin trended down. Metronidazole 500 mg b.i.d. Ciprofloxacin 500 mg b.i.d. Culturelle 89039 mg b.i.d. Possible pancreatic mass: CT scan of the chest/abdomen/pelvis showed: Intrahepatic and extrahepatic biliary ductal dilatation and dilated pancreatic duct. Obstruction due to mass at the pancreatic head can not be excluded. Correlate with clinical findings. Pancreatic protocol MRI with MRCP could be considered to further evaluate. No gallstones visualized in the gallbladder. Cirrhotic liver morphology with mild ascites. Correlate with clinical findings. Additional findings as described above. Plan: Follow-up MRCP. Well's criteria 4.5: Pulmonary embolism-ruled out: The patient is currently on oxygen mask requiring 10 L of oxygen. D-dimer was found 8.04. CTA of the chest: Did not show pulmonary embolism. Acute kidney injury likely secondary to vasomotor nephropathy-resolved: Creatinine during admission 1.39, current creatinine level 0.95. 05/22/25-Creatinine back to normal. Continue to monitor her. 05/23/2025: Creatinine levels within reference range. IV fluids discontinued. Hypertension: The patient initially was with hypotension, currently resolved. Amlodipine 5 mg daily. Metoprolol succinate 25 mg daily. 05/22/25-Patient recording low blood pressure 66/46. Given 1 L bolus fluids. Held amlodipine and metoprolol in view of soft blood pressures. 05/23/2025: Amlodipine and metoprolol held due to low blood pressures. Hypothyroidism: TSH 7.49. Plan: Levothyroxine 100 mcg daily. 05/23/2025: Levothyroxine increased to 112 mcg daily. Due to elevated TSH H/O Dyslipidemia: Atorvastatin 40 mg daily. Depression: Mirtazapine 50 mg daily. Duloxetine 30 mg daily. Amitriptyline 50 mg daily. H/O CAD: Echocardiogram: Overall LVEF is 70-75%. Normal LV size and wall thickness. Overall systolic function is hyperdynamic. RV is normal size and function. Mitral valve leaflets are mildly thickened with mild annular calcification. No stenosis. Trace regurgitation. Tricuspid valve is grossly normal in structure with trace regurgitation. Normal pericardium. No effusion. Pulmonic valve is grossly normal in structure. Aspirin 81 mg daily. Code status: Full code DVT prophylaxis: Heparin Analgesia/sedation: [place] Line/tube: PIV GI prophylaxis: Protonix Nutrition: Regular diet PT: Recommended home with assist. Prognosis: Guarded Disposition: Continue medical management. Anupam Sun Internal Medicine Resident [facility] Patient is advised that she is going to need a follow up as an outpatient regarding this questionable pancreatic mass in the interim trying to control her blood pressure. It has gone from hypertension to hypotension and unable to regulate going to give her a fluid bolus and monitor closely continue with PT. Date of Service: May 23, 2025 Billing Provider: BELLO FELIPE MD Common Visit Codes: [id number] INP/OBS CARE(HIGH) ANUPAM FAIRBANKS, RES May 23, 2025 14:31 BELLO FELIPE MD May 25, 2025 15:01
--- NOTE | 2025-05-23 15:03 | RADIOLOGY REPORT ---
CTA CHEST WITH CONTRAST CT ABDOMEN AND PELVIS WITH CONTRAST INDICATION: elevated ddimer, shortness of breath. Desaturation. COMPARISON: CT CT CHEST ABDOMEN PELVIS on DOS: 05/22/25, DI CHEST,SINGLE VIEW on DOS: 05/22/25 TECHNIQUES: Thin axial CT images of the chest are obtained in the early arterial phase after intravenous contrast administration. Maximum intensity projection (MIP) images were provided. 3-D images were constructed on independent workstation. CT images of the abdomen and pelvis are obtained in the portal venous phase after intravenous contrast administration. Sagittal and coronal reformats were provided in soft tissue and bone windows. Radiation optimization: All CT scans at this facility use at least one of these dose optimization techniques: Automated exposure control mA and/or kV adjustment per patient size (includes targeted exams where dose is matched to clinical indication) or iterative reconstruction. CONTRAST ADMINISTERED: 100 mL omnipaque 300 intravenously RADIATION DOSE: CTDI: 22 mGy DLP: 592 mGy-cm FINDINGS: There is moderate centrilobular emphysema. There is interlobular septal thickening. There is mild pulmonary edema. There are small bilateral pleural effusions. There is partial consolidation of the dependent portion of bilateral lower lobes with air bronchograms concerning for pneumonia. There is no p neumothorax. There is no bronchiectasis or honeycombing. The heart is not enlarged. There is no pericardial effusion. There is no thoracic aortic aneurysm or dissection. There is no pulmonary arterial filling defect as far as the subsegmental level to suggest pulmonary embolism. There are subcentimeter mediastinal lymph nodes without pathologic enlargement. There are bilateral breast prostheses. There is likely rupture of the left breast prosthesis. The spleen is not enlarged. The liver is normal in size and contour. No focal hepatic lesion is identified. There is severe intrahepatic and extrahepatic biliary dilation. The common bile duct measures approximately 20 mm. The gallbladder is distended. No calcified gallstone is identified The portal vein is patent. The pancreatic duct is dilated at 9 mm. No peripancreatic inflammatory change is identified. The adrenal glands are grossly unremarkable. The kidneys enhance symmetrically. No solid renal mass is identified. There is no hydronephrosis of either kidney. No large intraluminal bladder mass is identified. There is some air within the urinary bladder. The uterus and ovaries are grossly unremarkable. There is diffuse thickening of the rectal wall, the descending and sigmoid colon, consistent with colitis. The colonic stool burden is overall small. The appendix is not seen. There is no pericecal inflammatory change to suggest acute appendicitis. There is no pathologic distention of the small bowel. There is no abdominal aortic aneurysm or dissection. No free fluid is identified in the abdomen or pelvis. There is no pathologic lymphadenopathy in the abdomen or pelvis by size criteria no acute osseous abnormality is identified IMPRESSION: No evidence of pulmonary embolism as far as the subsegmental level. No thoracic aortic aneurysm or dissection. Severe intrahepatic and extrahepatic biliary dilation. Dilated pancreatic duct at 9 mm. Consider further evaluation with ERCP or MRCP. Some air within the urinary bladder. Correlate clinically for recent instrumentation. Diffuse mural thickening of descending colon, sigmoid colon, and rectum, consistent with colitis / proctitis. Possible rupture of the left breast prosthesis. Moderate centrilobular emphysema. Mild pulmonary edema. Small bilateral pleural effusions. Partial consolidation of bilateral dependent lower lobes.
[2025-05-23] MEDS ORDERED: ipratropium/albuterol 3ml nebule NEB PRN (18:15)
--- NOTE | 2025-05-23 19:06 | RADIOLOGY REPORT ---
CLINICAL INFORMATION: Intrahepatic and extrahepatic biliary ductal dilatation and pancreatic ductal dilatation. TECHNIQUE: Multisequence multiplanar MRI images of the abdomen were obtained without IV contrast. Heavily T2-weighted MRCP images were obtained. 3D MRCP images were created. COMPARISON: CT CT CHEST ABDOMEN PELVIS on DOS: 05/22/25, DI ABDOMEN,SINGLE VIEW(KUB) on DOS: 05/22/25 FINDINGS: There is intrahepatic and extrahepatic biliary ductal dilatation. Common bile duct measures up to 2.4 cm in diameter. There is a abrupt cutoff of the distal common bile duct on MRCP near the ampulla. Pancreatic duct is dilated up to 1.4 cm, with somewhat beaded appearance. No gallstones visualized in the gallbladder. There are small bilateral pleural effusions. No other significant abnormality identified in the abdomen on limited noncontrast enhanced examination. IMPRESSION: 1. Intrahepatic and extrahepatic biliary ductal dilatation and dilation of the pancreatic duct. There appears to be abrupt cutoff of the distal common bile duct near the ampulla. Obstruction due to mass at the ampulla or pancreatic head not excluded. Correlate with clinical findings. Pancreatic protocol MRI without and with contrast could be considered to evaluate for obstructing mass at the pancreatic head. 2. No gallstones visualized in the gallbladder. 3. Small bilateral pleural effusions.
[2025-05-24] VITALS (10 sets, daily range): BP systolic 70–162; BP diastolic 46–117; PULSE 96–114; RESP 16–20; TEMP 97.5–99.3; O2SAT 94–98
[2025-05-24 05:51] LABS: MEAN PLATELET VOLUME 9.3 FL (7.4-10.4); RED CELL DISTRIBUTION WIDTH 16.5 % (11.5-14.5)
[2025-05-24 07:24] LABS: BANDS% (MANUAL) 1.0 % (0-10); EOSINOPHILS % (MANUAL) 6.0 % (0-6); LYMPHOCYTES % (MANUAL) 18.0 % (21-51); METAMYLEOCYTES% (MANUAL) 1.0 % (0-0); MONOCYTES % (MANUAL) 8.0 % (2-12); NEUTROPHILS % (MANUAL) 65.0 % (42-75); REACTIVE LYMPHOCYTES % 1.0 % (0-0)
[2025-05-24 07:25] LABS: PLATELET ESTIMATE NORMAL
[2025-05-24 07:26] LABS: LARGE PLATELETS FEW
[2025-05-24 08:01] LABS: CREATININE 0.99 MG/DL (0.40-0.90); TOTAL CARBON DIOXIDE 29.9 MMOL/L (24-32); eCRCL 33 ML/MIN; eGFR 55 ML/MIN
[2025-05-24] MEDS: levoTHYROXINE 112mcg tablet PO SCH (08:14)
[2025-05-24 08:29] LABS: ABG BASE EXCESS 2.4 mmol/L (-2.0-3.0); ABG HCO3 24.9 mmol/L (21.0-28.0); ABG OXYGEN SATURATION 97.4 % (94.0-98.0); ABG PCO2 (T) 31.6 mmHg (32.0-45.0); ABG PH (T) 7.514 (7.350-7.450); ABG PO2 (T) 87.2 mmHg (83.0-108.0); ALLEN'S TEST POSITIVE; FCOHb 1.1 % (0.5-1.5); FHHb 2.6 % (0.0-5.0); FIO2 35.0 mmHg/%; FLOW 12 L/min; FMetHb 0.3 % (0.0-1.5); FO2Hb 96.0 % (94.0-98.0); MODE MASK - VENTI; PATIENT TEMPERATURE 36.8; TOTAL HEMOGLOBIN 11.8 G/dl (12.0-16.0)
[2025-05-24] MEDS: metoprolol succinate 25mg (24-HOUR) SR. Tablet PO SCH (10:30)
[2025-05-24] MEDS: normal saline 500ml IV soln 500 ML IV ONE (14:32)
[2025-05-24] MEDS ORDERED: magnesium sulf-water 2g/50mL 50 ML IV PRN (15:10)
[2025-05-24] MEDS ORDERED: magnesium sulf-water 4G/100mL 100 ML IV PRN (15:15)
[2025-05-24] MEDS ORDERED: potassium Cl 40MEQ/1/2NS 520ml 520 ML IV PRN (15:15)
--- NOTE | 2025-05-24 16:56 | PROGRESS NOTE- Residence ---
Progress Note - Resident Providers to CC Resident Creating Document: NICOLENICOLE ORRESAU, RES ~ Antibiotic Timeout Antibiotic Ordered?: Yes Subjective The patient has been evaluated at bedside. The patient reports improvement of diarrhea, no episodes of diarrhea for two days. Denies nausea, abdominal pain. Objective Vital Signs Date Time Temp Pulse Resp B/P (MAP) Pulse Ox O2 Delivery O2 Flow Rate FiO2 05/24/25 15:45 18 05/24/25 13:35 99 100/62 (75) 104 90/56 (67) 114 70/46 (54) 05/24/25 10:00 97.5 95 Nasal Cannula 3.0 32 Physical exam: General: Awake, alert, oriented. No acute distress. Well-developed, hydrated and well-built nourished. No anemia, Jaundice or clubbing. HEENT: Conjunctive are pink, sclerae clear, no icterus, pupil is equal in both sides, reactive to light, no ear discharge, no pharyngeal erythema or an edema. Neck: Supple, no adenopathy, thyromegaly. Trachea is midline. No JVD. Chest: Respiratory: Vesicular breath sounds. No ronchi, crepitus or wheezing. Resonance is normal upon percussion of all lung lee. Cardiovascular: S1-S2 regular sinus rhythm and, regular rate, no gallops, no rubs, no murmurs Abdomen: No visible distention, Bowel sounds present on auscultation, on palpation: soft, nontender, no guarding, no rigidity. Extremities: No obvious deformities, no pitting edema bilaterally, capillary refill intact, peripheral pulsations are intact on both sides Neurologic: Mental status: alert and conscious, oriented to place, person and time, preserved memory, normal speech. Cranial nerves I-XII: Normal. Motor system: Preserved power, coordination, no evidenced involuntary movements, strength 5/5 in four extremities. Skin: Warm and dry. Presence of scar in the midline of the abdomen Result Diagram: 05/24/259 05/24/259 Coagulation Studies Laboratory Tests Test 05/22/25 19:32 D-Dimer 8.04 MG/L FEU (0-0.50) H D-Dimer Comment Assessment Assessment 74-year-old female patient came to the hospital transferred from [facility] due to abdominal pain and diarrhea. Plan Plan Acute diarrhea: Septic shock-resolved: Infectious Colitis: A: The patient presented with acute abdominal pain and diarrhea. CT scan of the abdomen showed signs of sigmoid colitis. There is moderate ascites which is new. Persistent intrahepatic and extrahepatic biliary distension unchanged. Dilated pancreatic duct and changed. The patient was transferred from [facility], initially was treated with Levophed-discontinued at the other facility V4 transferred. WBC trended down compared with admission. Last colonoscopy that the patient had was in [address] [facility] were polyps were evidenced, benign. The patient was recommended to follow-up colonoscopy in seven years. Procalcitonin 5.06. 05/22/25-Continue giving antibiotics We will continue to monitor her. 05/23/2025: Procalcitonin trended down. 05/24/2025: Blood pressure within reference range. Orthostatic vitals were positive. NS 500 mL bolus given. Metronidazole 500 mg b.i.d. Ciprofloxacin 500 mg b.i.d. Culturelle 62713 mg b.i.d. Orthostatic hypotension: Orthostatic vitals positive. Plan: 500 NS bolus given to the patient. Continue to monitor blood pressure. Possible pancreatic mass: CT scan of the chest/abdomen/pelvis showed: Intrahepatic and extrahepatic biliary ductal dilatation and dilated pancreatic duct. Obstruction due to mass at the pancreatic head can not be excluded. Correlate with clinical findings. Pancreatic protocol MRI with MRCP could be considered to further evaluate. No gallstones visualized in the gallbladder. Cirrhotic liver morphology with mild ascites. Correlate with clinical findings. Additional findings as described above. MRCP: Intrahepatic and extrahepatic biliary ductal dilatation and dilation of the pancreatic duct. There appears to be abrupt cutoff of the distal common bile duct near the ampulla. Obstruction due to mass at the ampulla or pancreatic head not excluded. Correlate with clinical findings. Pancreatic protocol MRI without and with contrast could be considered to evaluate for obstructing mass at the pancreatic head. No gallstones visualized in the gallbladder. Small bilateral pleural effusions. As per medical record in 2022 MRCP done showed severe biliary and pancreatic ductal dilation but no obstructing stone. The patient underwent an endoscopic ultrasound on 05/22/2023 with from Gastroenterology with findings of mild erosive duodenitis. The endoscopic ultrasound noted pancreatic duct was dilated up to 8 mm in the head and 7 mm in the body and 4 mm in the tail but without any mass stone or stricture. The common bile duct was dilated diffusely after a maximum diameter of 24 mm proximally and diffuse heparin distally with someone improved heparin at the ampulla. Per Dr. Garcia time the biliary dilation and pancreatic dilation could be related to chronic opiate pain medication especially since liver enzymes were normal. He recommended repeat endoscopic ultrasound at [facility]. As per patient she was not able to follow up. Plan: The patient will require repeat ERCP as an outpatient. Acute hypoxemic respiratory failure likely secondary to: Possible diastolic congestive heart failure with preserved ejection fraction of 70%: Well's criteria 4.5: Pulmonary embolism-ruled out: The patient is currently on oxygen mask requiring 10 L of oxygen. D-dimer was found 8.04. CTA of the chest: Did not show pulmonary embolism. On 05/22/2025 the patient presented with shortness of breaths, required 10 L of oxygen with mask. One dose of Lasix 40 mg was given. Upon the following 2 days oxygen requirement improved, currently requiring 3 L of oxygen nasal cannula. ProBNP initially 5809-trended down. Echocardiogram: Overall LVEF is 70-75%. Normal LV size and wall thickness. Overall systolic function is hyperdynamic. RV is normal size and function. Mitral valve leaflets are mildly thickened with mild annular calcification. No stenosis. Trace regurgitation. Tricuspid valve is grossly normal in structure with trace regurgitation. Normal pericardium. No effusion. Pulmonic valve is grossly normal in structure. Plan: Continue to monitor. Acute kidney injury likely secondary to vasomotor nephropathy-resolved: Creatinine during admission 1.39, current creatinine level 0.95. Continue to monitor CMP. Hypertension: Orthostatic hypotension: The patient initially was with hypotension, currently resolved. Discontinued blood pressure medications. NS 500 mL bolus given. Hypothyroidism: TSH 7.49. Plan: Levothyroxine 100 mcg daily. 05/23/2025: Levothyroxine increased to 112 mcg daily. Due to elevated TSH 05/24/2025, continue levothyroxine 112 mcg daily H/O Dyslipidemia: Atorvastatin 40 mg daily. Depression: Mirtazapine 50 mg daily. Duloxetine 30 mg daily. Amitriptyline 50 mg daily. H/O CAD: Echocardiogram: Overall LVEF is 70-75%. Normal LV size and wall thickness. Overall systolic function is hyperdynamic. RV is normal size and function. Mitral valve leaflets are mildly thickened with mild annular calcification. No stenosis. Trace regurgitation. Tricuspid valve is grossly normal in structure with trace regurgitation. Normal pericardium. No effusion. Pulmonic valve is grossly normal in structure. Aspirin 81 mg daily. Code status: Full code DVT prophylaxis: Heparin Analgesia/sedation: [place] Line/tube: PIV GI prophylaxis: Protonix Nutrition: Regular diet PT: Recommended home with assist. Prognosis: Guarded Disposition: Continue medical management. Esau Orr Internal Medicine Resident [facility] Patient is reluctant to be discharged home [place] she knows home health is not available she is on 3 L of oxygen I spoke to the raw material planner to arrange for home O2. Also patient is working with PT. Date of Service: May 24, 2025 Billing Provider: BELLO FELIPE MD Common Visit Codes: [id number] INP/OBS CARE(HIGH) ESAU FAIRBANKS, RES May 24, 2025 16:56 BELLO FELIPE MD May 25, 2025 15:01
[2025-05-24] MEDS: pantoprazole 40mg Tablet.DR PO SCH (20:59)
[2025-05-24] MEDS: potassium Cl 20 mEq SR tablet PO PRN (21:29)
[2025-05-25] VITALS (14 sets, daily range): BP systolic 62–162; BP diastolic 40–109; PULSE 73–94; RESP 14–18; TEMP 97.2–97.9; O2SAT 86–98
[2025-05-25 07:37] LABS: MEAN PLATELET VOLUME 8.8 FL (7.4-10.4); RED CELL DISTRIBUTION WIDTH 16.1 % (11.5-14.5)
[2025-05-25 07:50] LABS: CREATININE 0.99 MG/DL (0.40-0.90); TOTAL CARBON DIOXIDE 32.5 MMOL/L (24-32); eCRCL 33 ML/MIN; eGFR 55 ML/MIN
[2025-05-25 08:28] LABS: BANDS% (MANUAL) 3.0 % (0-10); METAMYLEOCYTES% (MANUAL) 5.0 % (0-0); MYELOCYTES % (MANUAL) 1.0 % (0-0); NEUTROPHILS % (MANUAL) 59.0 % (42-75)
[2025-05-25 08:29] LABS: EOSINOPHILS % (MANUAL) 4.0 % (0-6); LYMPHOCYTES % (MANUAL) 19.0 % (21-51); MONOCYTES % (MANUAL) 9.0 % (2-12); PLATELET ESTIMATE NORMAL
[2025-05-25 08:30] LABS: LARGE PLATELETS FEW
[2025-05-25] MEDS ORDERED: LEVO112T52 PO (10:30)
[2025-05-25] MEDS ORDERED: CIPR-259 PO (10:30)
[2025-05-25] MEDS ORDERED: LACT1CAP26 PO (10:30)
[2025-05-25] MEDS ORDERED: METR-159 PO (10:30)
[2025-05-25] MEDS: normal saline 500ml IV soln 500 ML IV ONE (11:24)
[2025-05-25] MEDS: potassium Cl 20 mEq SR tablet PO STA (12:46)
[2025-05-25] MEDS: potassium Cl 20 mEq SR tablet PO PRN (13:30)
--- NOTE | 2025-05-25 16:02 | PROGRESS NOTE- Residence ---
Progress Note - Resident Providers to CC Resident Creating Document: ESAU FAIRBANKS, RES ~ Antibiotic Timeout Antibiotic Ordered?: Yes Subjective The patient has been evaluated at bedside. The patient reports improvement of diarrhea, still reports some dizziness when standing up. Objective Vital Signs Date Time Temp Pulse Resp B/P (MAP) Pulse Ox O2 Delivery O2 Flow Rate FiO2 05/25/25 15:18 18 05/25/25 14:27 92 74/49 (57) 05/25/25 10:00 97.8 93 Room Air 05/25/25 08:24 0 21 Physical exam: General: Awake, alert, oriented. No acute distress. Well-developed, hydrated and well-built nourished. No anemia, Jaundice or clubbing. HEENT: Conjunctive are pink, sclerae clear, no icterus, pupil is equal in both sides, reactive to light, no ear discharge, no pharyngeal erythema or an edema. Neck: Supple, no adenopathy, thyromegaly. Trachea is midline. No JVD. Chest: Respiratory: Vesicular breath sounds. No ronchi, crepitus or wheezing. Resonance is normal upon percussion of all lung lee. Cardiovascular: S1-S2 regular sinus rhythm and, regular rate, no gallops, no rubs, no murmurs Abdomen: No visible distention, Bowel sounds present on auscultation, on palpation: soft, nontender, no guarding, no rigidity. Extremities: No obvious deformities, no pitting edema bilaterally, capillary refill intact, peripheral pulsations are intact on both sides Neurologic: Mental status: alert and conscious, oriented to place, person and time, preserved memory, normal speech. Cranial nerves I-XII: Normal. Motor system: Preserved power, coordination, no evidenced involuntary movements, strength 5/5 in four extremities. Skin: Warm and dry. Presence of scar in the midline of the abdomen Result Diagram: 05/25/25 0728 05/25/25 1149 Coagulation Studies Laboratory Tests Test 05/22/25 19:32 D-Dimer 8.04 MG/L FEU (0-0.50) H D-Dimer Comment Assessment Assessment 74-year-old female patient came to the hospital transferred from [facility] due to abdominal pain and diarrhea. Plan Plan Acute diarrhea: Septic shock-resolved: Infectious Colitis: A: The patient presented with acute abdominal pain and diarrhea. CT scan of the abdomen showed signs of sigmoid colitis. There is moderate ascites which is new. Persistent intrahepatic and extrahepatic biliary distension unchanged. Dilated pancreatic duct and changed. The patient was transferred from [facility], initially was treated with Levophed-discontinued at the other facility before transferred. Last colonoscopy that the patient had was in 2022 at [facility] were polyps were evidenced, benign. The patient was recommended to follow-up colonoscopy in seven years. Plan: Metronidazole 500 mg b.i.d. day 5. Ciprofloxacin 500 mg b.i.d. day 5. Culturelle 78515 mg b.i.d. day 5. Orthostatic hypotension: Orthostatic vitals positive. Plan: Five hundred NS bolus ordered. Fludrocortisone 0.1 mg daily. Compression socks ordered. Abdominal binder ordered. Continue to monitor blood pressure. Possible pancreatic mass: CT scan of the chest/abdomen/pelvis showed: Intrahepatic and extrahepatic biliary ductal dilatation and dilated pancreatic duct. Obstruction due to mass at the pancreatic head can not be excluded. Correlate with clinical findings. Pancreatic protocol MRI with MRCP could be considered to further evaluate. No gallstones visualized in the gallbladder. Cirrhotic liver morphology with mild ascites. Correlate with clinical findings. Additional findings as described above. MRCP: Intrahepatic and extrahepatic biliary ductal dilatation and dilation of the pancreatic duct. There appears to be abrupt cutoff of the distal common bile duct near the ampulla. Obstruction due to mass at the ampulla or pancreatic head not excluded. Pancreatic protocol MRI without and with contrast could be considered to evaluate for obstructing mass at the pancreatic head. No gallstones visualized in the gallbladder. Small bilateral pleural effusions. As per medical records in 2022 MRCP done showed severe biliary and pancreatic ductal dilation but no obstructing stone. The patient underwent an endoscopic ultrasound on 05/22/[address] Garcia from [facility] with findings of mild erosive duodenitis. The endoscopic ultrasound noted pancreatic duct was dilated up to 8 mm in the head and 7 mm in the body and 4 mm in the tail but without any mass stone or stricture. The common bile duct was dilated diffusely after a maximum diameter of [address] Garcia at that time the biliary dilation and pancreatic dilation could be related to chronic opiate pain medication especially since liver enzymes were normal. He recommended repeat endoscopic ultrasound at [facility]. As per patient she was not able to follow up. Plan: The patient will require repeat ERCP as an outpatient. Acute hypoxemic respiratory failure likely secondary to: Possible diastolic congestive heart failure with preserved ejection fraction of 70%: Pulmonary embolism-ruled out: CTA of the chest: Did not show pulmonary embolism. On 05/22/2025 the patient presented with shortness of breaths, required 10 L of oxygen with mask. One dose of Lasix 40 mg was given. Upon the following 2 days oxygen requirement improved, currently requiring 3 L of oxygen nasal cannula. ProBNP initially 5809-trended down. Echocardiogram: Overall LVEF is 70-75%. Normal LV size and wall thickness. Overall systolic function is hyperdynamic. RV is normal size and function. Plan: Continue to monitor. Currently the patient is on room air, saturating 92-96%. Acute kidney injury likely secondary to vasomotor nephropathy-resolved: Creatinine during admission 1.39, current creatinine level 0.95. Continue to monitor CMP. Hypertension: Orthostatic hypotension: The patient initially was with hypotension, currently resolved. Discontinued blood pressure medications. NS 500 mL bolus given. Hypothyroidism: TSH 7.49. Continue levothyroxine 112 mcg daily H/O Dyslipidemia: Atorvastatin 40 mg daily. Depression: Mirtazapine 50 mg daily. Duloxetine 30 mg daily. Amitriptyline 50 mg daily. H/O CAD: Echocardiogram: Overall LVEF is 70-75%. Normal LV size and wall thickness. Overall systolic function is hyperdynamic. RV is normal size and function. Mitral valve leaflets are mildly thickened with mild annular calcification. No stenosis. Trace regurgitation. Tricuspid valve is grossly normal in structure with trace regurgitation. Normal pericardium. No effusion. Pulmonic valve is grossly normal in structure. Aspirin 81 mg daily. Code status: Full code DVT prophylaxis: Heparin Analgesia/sedation: [place]/tube: PIV GI prophylaxis: Protonix Nutrition: Regular diet PT: Recommended home with assist. Prognosis: Guarded Disposition: Continue medical management. Initially the patient was planned to be discharged today. The patient is still having orthostatic hypotension, dizziness with standing up. Anticipated discharge tomorrow. Esau Sun Internal Medicine Resident [facility] Answered all the patient's questions at the bedside to the best of my ability Date of Service: May 25, 2025 Billing Provider: BELLO FELIPE MD Common Visit Codes: [id number] INP/OBS CARE(HIGH) ESAU FAIRBANKS, RES May 25, 2025 16:02 BELLO FELIPE MD May 28, 2025 16:50
[2025-05-26] VITALS (7 sets, daily range): BP systolic 80–166; BP diastolic 60–111; PULSE 69–94; RESP 15–17; TEMP 97.3–98.4; O2SAT 92–97
[2025-05-26 04:27] LABS: CREATININE 0.90 MG/DL (0.40-0.90); TOTAL CARBON DIOXIDE 28.5 MMOL/L (24-32); eCRCL 37 ML/MIN; eGFR 61 ML/MIN
[2025-05-26 08:56] LABS: MEAN PLATELET VOLUME 10.1 FL (7.4-10.4); RED CELL DISTRIBUTION WIDTH 16.8 % (11.5-14.5)
[2025-05-26 08:59] LABS: LARGE PLATELETS FEW; PLATELET ESTIMATE NORMAL
--- NOTE | 2025-05-26 14:23 | PROGRESS NOTE- Residence ---
Progress Note - Resident Providers to CC Resident Creating Document: RYAN ORRANUPAM, RES ~ Antibiotic Timeout Antibiotic Ordered?: Yes Subjective The patient has been evaluated at the bedside. The patient currently denies episodes of diarrhea. Still complains of some dizziness when standing up. Objective Vital Signs Date Time Temp Pulse Resp B/P (MAP) Pulse Ox O2 Delivery O2 Flow Rate FiO2 05/26/25 14:05 16 05/26/25 10:00 98.3 83 129/96 (107) 92 Room Air 2.0 21 Physical exam: General: Awake, alert, oriented. No acute distress. Well-developed, hydrated and well-built nourished. No anemia, Jaundice or clubbing. HEENT: Conjunctive are pink, sclerae clear, no icterus, pupil is equal in both sides, reactive to light, no ear discharge, no pharyngeal erythema or an edema. Neck: Supple, no adenopathy, thyromegaly. Trachea is midline. No JVD. Chest: Respiratory: Vesicular breath sounds. No ronchi, crepitus or wheezing. Resonance is normal upon percussion of all lung lee. Cardiovascular: S1-S2 regular sinus rhythm and, regular rate, no gallops, no rubs, no murmurs Abdomen: No visible distention, Bowel sounds present on auscultation, on palpation: soft, nontender, no guarding, no rigidity. Extremities: No obvious deformities, no pitting edema bilaterally, capillary refill intact, peripheral pulsations are intact on both sides, presence of compression socks. Neurologic: Mental status: alert and conscious, oriented to place, person and time, preserved memory, normal speech. Cranial nerves I-XII: Normal. Motor system: Preserved power, coordination, no evidenced involuntary movements, strength 5/5 in four extremities. Skin: Warm and dry. Presence of scar in the midline of the abdomen Result Diagram: 05/26/25 0357 05/26/25 0357 Coagulation Studies Laboratory Tests Test 05/22/25 19:32 D-Dimer 8.04 MG/L FEU (0-0.50) H D-Dimer Comment Assessment Assessment 74-year-old female patient came to the hospital transferred from [facility] due to abdominal pain and diarrhea. Plan Plan Acute diarrhea: Septic shock: Infectious Colitis: A: The patient presented with acute abdominal pain and diarrhea. CT scan of the abdomen showed signs of sigmoid colitis. Persistent intrahepatic and extrahepatic biliary distension unchanged. Dilated pancreatic duct unchanged. The patient was transferred from [facility]. Initially was treated with Levophed-discontinued at the other facility before transferring. Repeat CT scan of the abdomen and pelvis showed thickening of transverse and descending colon consistent with colitis, edema at the level of the rectum that may indicate proctitis. Last colonoscopy that the patient had was in 2022 at [facility] were polyps were evidenced, benign. The patient was recommended to follow-up colonoscopy in seven years. Plan: We will continue antibiotic therapy. Metronidazole 500 mg b.i.d. day 6. Ciprofloxacin 500 mg b.i.d. day 6. Culturelle 82187 mg b.i.d. day 6. Orthostatic hypotension likely secondary to autonomic dysfunction: Orthostatic vitals positive most likely contributed due to autonomic dysfunction, home blood pressure medications on hold. Explained in detail the causes of her orthostatic hypotension, recommendation for slow movements when change in position was given to the patient who appeared to understand and was agreeable with the measurements. Plan: Five hundred NS bolus ordered. Increased fludrocortisone to 0.2 mg daily. Midodrine 2.5 mcg t.i.d. Continue compression socks and abdominal binder. Continue to monitor blood pressure. Possible pancreatic mass: Possible liver cirrhosis: CT scan of the chest/abdomen/pelvis showed: Intrahepatic and extrahepatic biliary ductal dilatation and dilated pancreatic duct. Obstruction due to mass at the pancreatic head can not be excluded. Pancreatic protocol MRI with MRCP could be considered to further evaluate. No gallstones visualized in the gallbladder. Cirrhotic liver morphology with mild ascites. Correlate with clinical findings. MRCP performed due to biliary ductal dilation found in CT scan showed Intrahepatic and extrahepatic biliary ductal dilatation and dilation of the pancreatic duct. There appears to be abrupt cutoff of the distal common bile duct near the ampulla. Obstruction due to mass at the ampulla or pancreatic head not excluded. No gallstones were visualized in the gallbladder. Small bilateral pleural effusions. As per medical records in 2022 MRCP done showed severe biliary and pancreatic ductal dilation but no obstructing stone. The patient underwent an endoscopic ultrasound on 05/22/[address] Garcia from [facility] with findings of mild erosive duodenitis. The endoscopic ultrasound noted pancreatic duct was dilated up to 8 mm in the head and 7 mm in the body and 4 mm in the tail but without any mass stone or stricture. The common bile duct was dilated diffusely after a maximum diameter of [address] Garcia at that time the biliary dilation and pancreatic dilation could be related to chronic opiate pain medication especially since liver enzymes were normal. He recommended repeat endoscopic ultrasound at [facility]. As per patient she was not able to follow up. Plan: Liver enzymes, bilirubin and alkaline phosphatase remained stable. The patient will require repeat ERCP as an outpatient. Acute hypoxemic respiratory failure likely secondary to: Possible diastolic congestive heart failure with preserved ejection fraction of 70%: Pulmonary embolism-ruled out: CTA of the chest: Did not show pulmonary embolism. On 05/22/2025 the patient presented with shortness of breaths, required 10 L of oxygen with mask. One dose of Lasix 40 mg was given. Upon the following 2 days oxygen requirement improved. Currently the patient on room air saturating 96%. Echocardiogram: Overall LVEF is 70-75%. Normal LV size and wall thickness. Overall systolic function is hyperdynamic. RV is normal size and function. Plan: Continue to monitor. Acute kidney injury likely secondary to vasomotor nephropathy-resolved: Creatinine during admission 1.39, current creatinine levels within reference range. Continue to monitor CMP. H/O Hypertension: Currently on Orthostatic hypotension: Discontinued blood pressure medications due to orthostatic hypotension. Hypothyroidism: TSH 7.49. Continue levothyroxine 112 mcg daily H/O Dyslipidemia: Atorvastatin 40 mg daily. Depression: Mirtazapine 50 mg daily. Duloxetine 30 mg daily. Amitriptyline 50 mg daily. H/O CAD: Echocardiogram: Overall LVEF is 70-75%. Normal LV size and wall thickness. Overall systolic function is hyperdynamic. RV is normal size and function. Mitral valve leaflets are mildly thickened with mild annular calcification. No stenosis. Trace regurgitation. Tricuspid valve is grossly normal in structure with trace regurgitation. Normal pericardium. No effusion. Pulmonic valve is grossly normal in structure. Aspirin 81 mg daily. Code status: Full code DVT prophylaxis: Heparin Analgesia/sedation: [place] [address] [place]/tube: PIV GI prophylaxis: Protonix Nutrition: Regular diet PT: Recommended home with assist. Prognosis: Guarded Disposition: Continue medical management. The patient remains with orthostatic hypotension, increased dose of fludrocortisone, started on midodrine. The patient lives at [place], where there are no services such as home health, holding discharge. Anupam Orr Internal Medicine Resident [facility] I had a full medical management very difficult to discharge the patient with severe orthostatic hypotension which is not new and is not responding to normal conservative methods even including the fludrocortisone. Her blood pressure is very labile either was very lower very high. Date of Service: May 26, 2025 Billing Provider: BELLO FELIPE MD Common Visit Codes: [id number] INP/OBS CARE(HIGH) ANUPAM FAIRBANKS, RES May 26, 2025 14:23 BELLO FELIPE MD May 28, 2025 16:49
[2025-05-26] MEDS: midodrine tablet 2.5 MG TABLET PO SCH (16:15)
[2025-05-27 06:00] VITALS: BP 152/101; PULSE 86; RESP 13; TEMP 97.7; O2SAT 97
[2025-05-27 08:00] VITALS: RESP 16; O2SAT 95
[2025-05-27 08:34] LABS: MEAN PLATELET VOLUME 9.4 FL (7.4-10.4); RED CELL DISTRIBUTION WIDTH 16.8 % (11.5-14.5)
[2025-05-27 08:52] LABS: CREATININE 1.01 MG/DL (0.40-0.90); TOTAL CARBON DIOXIDE 25.9 MMOL/L (24-32); eCRCL 33 ML/MIN; eGFR 53 ML/MIN
[2025-05-27 09:28] LABS: BANDS% (MANUAL) 4.0 % (0-10); EOSINOPHILS % (MANUAL) 2.0 % (0-6); LYMPHOCYTES % (MANUAL) 16.0 % (21-51); METAMYLEOCYTES% (MANUAL) 7.0 % (0-0); MONOCYTES % (MANUAL) 11.0 % (2-12); MYELOCYTES % (MANUAL) 1.0 % (0-0); NEUTROPHILS % (MANUAL) 59.0 % (42-75); PLATELET ESTIMATE NORMAL
[2025-05-27 09:29] LABS: GIANT PLATELET FEW; LARGE PLATELETS FEW
[2025-05-27] MEDS ORDERED: CIPR-259 PO (09:52)
[2025-05-27] MEDS ORDERED: METR-159 PO (09:52)
[2025-05-27] MEDS ORDERED: MIDO2.5T3 PO (09:55)
[2025-05-27] MEDS ORDERED: FLUD0.1T2 PO (09:55)
[2025-05-27 10:00] VITALS: BP 123/82; PULSE 99; RESP 18; TEMP 97.3; O2SAT 97
[2025-05-27 11:12] VITALS: PULSE 91; RESP 16; O2SAT 96
--- NOTE | 2025-05-27 17:22 | DISCHARGE SUMMARY-Residence ---
Discharge Summary Providers to CC Resident Creating Document: RYAN VARGASANUPAM Harrington, RES ~ Discharge Summary Admission Diagnosis: acute Colitis, CKD , possible sepsis Hospital Course DATE OF ADMISSION: 05/20/2025 DATE OF DISCHARGE: 05/27/2025 Discharge Diagnosis\Comment: Acute diarrhea Septic shock Infectious Colitis Orthostatic hypotension likely secondary to autonomic dysfunction Possible pancreatic mass Possible liver cirrhosis Acute hypoxemic respiratory failure likely secondary to diastolic congestive heart failure with preserved ejection fraction of 70% Pulmonary embolism-ruled out Acute kidney injury likely secondary to vasomotor nephropathy-resolved H/O Hypertension-Currently with Orthostatic hypotension Hypothyroidism H/O Dyslipidemia Depression H/O CAD Operations\Procedures: None Consultants: None Complications: None Condition on DC: Stable New Medications: Ciprofloxacin HCl (Cipro) 500 Mg Tablet 1 TAB PO Q12H for 3 Days, #6 TAB Fludrocortisone Acetate* (Florinef*) 0.1 Mg Tablet 2 TAB PO DAILY for 30 Days, #60 TAB Lactobacillus Rhamnosus (Culturelle) 10 Billion Cell Capsule 1 CAP PO BID for 30 Days, #60 CAP 0 Refills Levothyroxine Sodium (Synthroid) 112 Mcg Tablet 1 TAB PO DAILY for 30 Days, #30 TAB 0 Refills Metronidazole* (Flagyl*) 500 Mg Tablet 1 TAB PO Q12H for 3 Days, #6 TAB Midodrine Hcl (Midodrine Hcl) 2.5 Mg Tablet 1 TAB PO Q12H for 30 Days, #60 TAB 0 Refills Continued Medications: Amitriptyline Hcl* (Elavil*) 50 Mg Tablet 1 TAB PO HS Aspirin (Aspirin) 81 Mg Tab.chew 1 TAB PO DAILY Atorvastatin Calcium (Atorvastatin Calcium) 40 Mg Tablet 1 TAB PO HS Clonazepam (Clonazepam) 0.5 Mg Tablet Duloxetine HCl (Duloxetine HCl) 30 Mg Capsule.dr 1 CAP PO DAILY Hydrocodone Bit/Acetaminophen (Hydrocodon-Acetaminophn 10-325 tablet) 10mg- 325mg Tablet Ivabradine HCl (Ivabradine HCl) 5 Mg Tablet Mirtazapine (Mirtazapine) 15 Mg Tablet Pantoprazole Sodium (Pantoprazole Sodium) 40 Mg Tablet.dr 1 TAB PO DAILY Trazodone HCl (Trazodone HCl) 100 Mg Tablet Ubrogepant (Ubrelvy) 50 Mg Tablet Discontinued Medications: Amlodipine Besylate (Amlodipine Besylate) 5 Mg Tablet 1 TAB PO DAILY Levothyroxine Sodium (Levothyroxine Sodium) 100 Mcg Tablet 1 TAB PO DAILY Metoprolol Succinate (Metoprolol Succinate) 25 Mg Tab.sr.24h 1 TAB PO DAILY Discharge Summary: HPI: Patient is 74-year-old female transferred from [facility] for left lower abdominal pain, acute colitis hypovolemic shock. Patient went to [facility] because she noticed pain over abdomen which got more worse. pain over left lower quadrant nonradiating. Pain over lower abdomen associated with vomiting and as per patient she had 10 episodes of vomiting she has was not able to check her fever. According to her her belly feels like bloating in around 2:30 a.m. today it got more worse. She passed stools today which was loose no blood noticed in the stools. Patient denies any other symptoms. She is not very good historian mildly anxious As per [facility] patient was on IV fluids and Levophed . Levophed was discontinued 2 hours before transferring the patient to [facility] hospital. She required Dilaudid in received Zosyn in [facility] periods CT scan abdomen showed signs of sigmoid colitis. There is moderate ascites which is new. Persistent intrahepatic and extrahepatic biliary distension unchanged. Dilated pancreatic duct and changed WBC 11.85 CMP showing GFR 38 serum creatinine 1.6. Procalcitonin 0.16 positive urine nitrate in UA. Few bacteria. X-ray chest showed mild pulmonary edema superimposed infection or inflammation is possible. Patient follows with Marcella Lo in [facility]. She has [facility] worker to help her for her appointments and groceries. Follows with clinical services specialist Erendira heller. Denies use of any alcohol or drugs. Last smoking two weeks back but she has history of smoking in past. Hospital course: 74-year-old female patient admitted to the hospital from [facility] after being found in septic shock. The patient presented there with symptoms of abdominal pain and diarrhea. The patient was admitted due to infectious colitis evidenced on CT scan of the abdomen. During her hospital stay in [facility] the patient did not require vasopressor. Antibiotic therapy based on ciprofloxacin and metronidazole was started. Upon the following two days the patient reported significant improvement of diarrhea until resolution on the 3rd day. The patient stated that she started having normal bowel movements and abdominal pain resolved. Among the workup of this abdominal pain CT scan of the abdomen was obtained which showed intrahepatic and extrahepatic biliary ductal dilation and dilated pancreatic duct which prompted for an MRCP. Upon the following day MRCP was obtained which showed severe biliary and pancreatic ductal dilation but no obstructive stone. Reviewing patient's medical record showed in 2022 MRCP done showed severe biliary and pancreatic ductal dilation but no obstructing stone. The patient underwent an endoscopic ultrasound on 05/22/[address] Garcia from [facility] with findings of mild erosive duodenitis. The endoscopic ultrasound noted pancreatic duct was dilated up to 8 mm in the head and 7 mm in the body and 4 mm in the tail but without any mass stone or stricture. The common bile duct was dilated diffusely after a maximum diameter of [address] Garcia at that time the biliary dilation and pancreatic dilation could be related to chronic opiate pain medication especially since liver enzymes were normal. He recommended repeat endoscopic ultrasound at [facility]. As per patient she was not able to follow up. During this hospitalization liver enzymes remained stable, resolution of the symptom after treatment of infectious colitis was significant. The patient was recommended to follow-up with freight service inspector for possible ERCP as an outpatient. On the day of 05/22/2025 the patient experienced shortness of breath, hypotension reason for which echocardiogram, D-dimer, CT angiogram of the chest was obtained, ruling out pulmonary embolism. Echocardiogram showed preserved ejection fraction. The patient was started on diuretic after evidencing mild pulmonary edema on CTA. Initially the patient required 10 L of oxygen, after diuresing the patient her oxygen requirement decreased until the patient was saturating 96% on room air. Upon the following days the patient was found with orthostatic hypotension most likely related to autonomic dysfunction, due to these symptoms and the risk of mechanical fall her discharge [place] while the patient does not have access for home health or other Services. Fludrocortisone, midodrine, compression socks, abdominal binder was started. Upon the following day blood pressure significantly improved, the patient stated that she was able to stand up and walk to the restroom by herself without feeling dizziness anymore. The patient remained hemodynamically stable. The patient will be discharged home. The patient was seen and evaluated on day of discharge. Time spent on discharge 35 minutes. Discharge course: The patient remained hemodynamically stable. The patient will be discharged with the following instructions: Call 911 or come to the emergency department if severe abdominal pain, fever, diarrhea, shortness of breath is evidenced. Take ciprofloxacin one tablet of 500 mg every 12 hours for six more days. Take metronidazole one tablet of 500 mg every 12 hours for six more days. Take fludrocortisone two tablets of 0.1 mg daily. Take midodrine one tablet of 2.5 mg every 12 hours. We are increasing your dose of levothyroxine from 100-112 mcg daily. Please monitor TSH with your primary care physician within one month. [place] [address] mmu every 12 hours. Continue your home medications amitriptyline one tablet of 50 mg at bedtime. Aspirin one tablet of 81 mg daily. Atorvastatin one tablet of 40 mg bedtime. Clonazepam one tablet of 0.5 mg as needed daily. Duloxetine one tablet of 30 mg daily. Mirtazapine one tablet of 15 mg daily. Protonix one tablet of 40 mg daily. Trazodone one tablet of 100 mg daily. We are stopping your blood pressure medication amlodipine 5 mg, metoprolol 25 mg due to low blood pressures that were evidenced during your hospitalization. Follow-up with your primary care physician within two weeks. Follow-up with freight service inspector within one month for follow-up of the suspected mass found at the level of the pancreas. Mentioned to her primary care physician that one of the breast implants is ruptured, for follow-up referral with surgeon. Strong recommendation when you change your position from lying down to sitting or standing up to do it slowly in order to avoid falls, due to orthostatic which you were experiencing due to autonomic dysfunction with is age related. Physical exam: General: Awake, alert, oriented. No acute distress. Well-developed, hydrated and well-built nourished. No anemia, Jaundice or clubbing. HEENT: Conjunctive are pink, sclerae clear, no icterus, pupil is equal in both sides, reactive to light, no ear discharge, no pharyngeal erythema or an edema. Neck: Supple, no adenopathy, thyromegaly. Trachea is midline. No JVD. Chest: Respiratory: Vesicular breath sounds. No ronchi, crepitus or wheezing. Resonance is normal upon percussion of all lung lee. Cardiovascular: S1-S2 regular sinus rhythm and, regular rate, no gallops, no rubs, no murmurs Abdomen: No visible distention, Bowel sounds present on auscultation, on palpation: soft, nontender, no guarding, no rigidity. Extremities: No obvious deformities, no pitting edema bilaterally, capillary refill intact, peripheral pulsations are intact on both sides, presence of compression socks. Neurologic: Mental status: alert and conscious, oriented to place, person and time, preserved memory, normal speech. Cranial nerves I-XII: Normal. Motor system: Preserved power, coordination, no evidenced involuntary movements, strength 5/5 in four extremities. Skin: Warm and dry. Presence of scar in the midline of the abdomen Vital Signs Date Time Temp Pulse Resp B/P (MAP) Pulse Ox O2 Delivery O2 Flow Rate FiO2 05/27/25 11:12 91 16 96 Room Air* 0 21 05/27/25 10:00 97.3 123/82 (96) Laboratory Tests Test 05/26/25 03:57 05/27/25 08:07 White Blood Count 11.6 X10'3 11.7 X10'3 Red Blood Count 4.03 X10'6 4.31 X10'6 Hemoglobin 11.7 g/dl 12.7 g/dl Hematocrit 35.7 % 38.0 % Mean Corpuscular Volume 88.5 FL 88.0 FL Mean Corpuscular Hemoglobin 29.1 PG 29.4 PG Mean Corpuscular Hemoglobin Concent 32.9 g/dL 33.4 g/dL Red Cell Distribution Width 16.8 % 16.8 % Platelet Count 287 X10'3 346 X10'3 Mean Platelet Volume 10.1 FL 9.4 FL Neutrophils (%) (Auto) 66.1 % 62.1 % Lymphocytes (%) (Auto) 19.1 % 22.8 % Monocytes (%) (Auto) 11.1 % 10.4 % Eosinophils (%) (Auto) 2.6 % 3.5 % Basophils (%) (Auto) 1.1 % 1.2 % Neutrophils # (Auto) 7.7 X10'3 7.2 X10'3 Lymphocytes # (Auto) 2.2 X10'3 2.7 X10'3 Monocytes # (Auto) 1.3 X10'3 1.2 X10'3 Eosinophils # (Auto) 0.3 X10'3 0.4 X10'3 Basophils # (Auto) 0.1 X10'3 0.1 X10'3 CBC Comment Platelet Estimate Normal Normal Large Platelets Few Few Red Blood Cell Morphology Perf Perf Basophilic Stippling Anisocytosis 1+ 1+ Sodium Level 138 MMOL/L 139 MMOL/L Potassium Level 4.5 MMOL/L 4.0 MMOL/L Chloride Level 106 MMOL/L 105 MMOL/L Carbon Dioxide Level 28.5 MMOL/L 25.9 MMOL/L Anion Gap 4 8 Blood Urea Nitrogen 16 MG/DL 20 MG/DL Creatinine 0.90 MG/DL 1.01 MG/DL Estimated GFR/1.73 m2 61 ML/MIN 53 ML/MIN BUN/Creatinine Ratio 17.8 19.8 Glucose Level 108 MG/DL 99 MG/DL Calcium Level 7.6 MG/DL 7.8 MG/DL Total Bilirubin 0.4 MG/DL 0.3 MG/DL Aspartate Amino Transf (AST/SGOT) 75 U/L 69 U/L Alanine Aminotransferase (ALT/SGPT) 38 U/L 44 U/L Alkaline Phosphatase 228 IU/L 213 IU/L Total Protein 6.2 G/DL 6.6 G/DL Albumin 2.4 G/DL 2.8 G/DL Globulin 3.8 G/DL 3.8 G/DL Albumin/Globulin Ratio 0.6 0.7 Chemistry Comments Differential Total Cells Counted 100 Neutrophils % (Manual) 59.0 % Band Neutrophils % 4.0 % Lymphocytes % (Manual) 16.0 % Monocytes % (Manual) 11.0 % Eosinophils % (Manual) 2.0 % Metamyelocytes % 7.0 % Myelocytes % 1.0 % Giant Platelets Few Imaging: Echocardiogram: Overall LVEF is 70-75%. Normal LV size and wall thickness. Overall systolic function is hyperdynamic. RV is normal size and function. Mitral valve leaflets are mildly thickened with mild annular calcification. No stenosis. Trace regurgitation. Tricuspid valve is grossly normal in structure with trace regurgitation. Normal pericardium. No effusion. Pulmonic valve is grossly normal in structure. Abdominal x-ray: Nonobstructive bowel gas pattern. Moderate colonic gas. Chest x-ray: Diffuse interstitial prominence which may be from pulmonary edema/ atypical pneumonia/fibrotic changes. Chest/abdomen/pelvis CT scan: Thickened transverse and descending colon consistent with colitis. There is also edema about the rectum that may indicate proctitis. No pneumoperitoneum. No intra-abdominal abscess identified. Intrahepatic and extrahepatic biliary dilation. CBD dilated at approximately 16 mm. The pancreatic duct is also dilated at approximately 7 mm. Consider evaluation with MRCP. Small bilateral pleural effusions. Partial consolidation o f the dependent portions of bilateral lower lobes of the lungs. Moderate centrilobular emphysema with scattered fibrotic changes. Interlobular septal thickening. Mild pulmonary edema. Likely rupture of the left breast prosthesis. Abdominal ultrasound: Intrahepatic and extrahepatic biliary ductal dilatation and dilated pancreatic duct. Obstruction due to mass at the pancreatic head can not be excluded. Correlate with clinical findings. Pancreatic protocol MRI with MRCP could be considered to further evaluate. No gallstones visualized in the gallbladder. Cirrhotic liver morphology with mild ascites. Correlate with clinical findings. Additional findings as described above. Chest CTA: No evidence of pulmonary embolism as far as the subsegmental level. No thoracic aortic aneurysm or dissection. Severe intrahepatic and extrahepatic biliary dilation. Dilated pancreatic duct at 9 mm. Consider further evaluation with ERCP or MRCP. Some air within the urinary bladder. Correlate clinically for recent instrumentation. Diffuse mural thickening of descending colon, sigmoid colon, and rectum, consistent with colitis / proctitis. Possible rupture of the left breast prosthesis. Moderate centrilobular emphysema. Mild pulmonary edema. Small bilateral pleural effusions. Partial consolidation of bilateral dependent lower lobes. MRCP: Intrahepatic and extrahepatic biliary ductal dilatation and dilation of the pancreatic duct. There appears to be abrupt cutoff of the distal common bile duct near the ampulla. Obstruction due to mass at the ampulla or pancreatic head not excluded. Correlate with clinical findings. Pancreatic protocol MRI without and with contrast could be considered to evaluate for obstructing mass at the pancreatic head. No gallstones visualized in the gallbladder. Small bilateral pleural effusions. *Problems/Diagnosis: (1) Orthostatic hypotension Status: Acute (2) Infectious colitis Status: Acute (3) Septic shock Status: Acute (4) Acute kidney injury Status: Acute (5) Acute hypoxemic respiratory failure Total Time Spent on D/C: > 30 Minutes Date of Service: May 27, 2025 Billing Provider: BELLO FELIPE MD Common Visit Codes: 71849-VQE/OBS DISCH DAY >30min RYAN VARGASANUPAM Harrington, RES May 27, 2025 17:19 BELLO FELIPE MD May 28, 2025 16:50
== END 2025-05-27 17:15 | disposition home or self-care (01) | DRG 871 ==
LOC: ER 10:45 → ED HOLD 12:10 → ORTHO 4S 20:54
PROVIDERS: ADMIT Internal Medicine; ATTEND Internal Medicine
PROC: BW251ZZ Computerized Tomography (CT Scan) of Chest, Abdomen and Pelvis using Low Osmolar Contrast (ICD-10-PCS; principal; 2025-05-23)
PROC: 5A0935A Assistance with Respiratory Ventilation, Less than 24 Consecutive Hours, High Flow/Velocity Cannula (ICD-10-PCS; 2025-05-24)
DX: A41.9 Sepsis, unspecified organism (principal); J96.01 Acute respiratory failure with hypoxia; N17.0 Acute kidney failure with tubular necrosis; R65.21 Severe sepsis with septic shock; R18.8 Other ascites; K86.89 Other specified diseases of pancreas; I50.30 Unspecified diastolic (congestive) heart failure; E03.9 Hypothyroidism, unspecified; F32.A Depression, unspecified; K74.60 Unspecified cirrhosis of liver; I11.0 Hypertensive heart disease with heart failure; A09 Infectious gastroenteritis and colitis, unspecified; I95.1 Orthostatic hypotension; G90.89 Other disorders of autonomic nervous system; I25.10 Atherosclerotic heart disease of native coronary artery without angina pectoris; Z88.4 Allergy status to anesthetic agent; Z79.82 Long term (current) use of aspirin; Z79.899 Other long term (current) drug therapy; I25.2 Old myocardial infarction; Z90.49 Acquired absence of other specified parts of digestive tract; Z87.891 Personal history of nicotine dependence
CPT/HCPCS: 36415; 36600; 71045; 71250; 71275; 74018; 74176; 74177; 74181; 76700; 80053; 82272; 82607; 82728; 82803; 83540; 83550; 83605; 83880; 83930; 84132; 84145; 84443; 84484; 85007; 85008; 85018; 85025; 85379; 85651; 86140; 87040; 87081; 93005; 93306; 94760; 96365; 96367; 96375; 97110; 97116; 97161; 97530; 99285; A4615; A5200; A6258; G0378; J0744; J1171; J1644; J1756; J1938; J2470; J3490; J7030; J7040; J7050; J7070; Q9967